=== PATIENT | male | born 1965 | race Caucasian/White ===

== ENCOUNTER 2021-03-30 10:53 | Day surgery (SDC) | payer MEDICAID ==
[~2021-03-30] VITALS: Ht 190.5 cm; Wt 97.7 kg
[2021-03-30] VITALS (11 sets, daily range): BP systolic 113–154; BP diastolic 68–91
[~2021-03-30 10:53] MED LIST: LORA1TAB PO
[2021-03-30] MEDS ORDERED: normal saline 1,000 ML IV SCH (11:40)
[2021-03-30] MEDS ORDERED: LORazepam 0.5 MG tablet PO PRN (11:40)
[2021-03-30] MEDS ORDERED: nitroGLYCERIN 0.4mg SUBLingual tab SL PRN ×2 (11:40→13:50)
[2021-03-30] MEDS ORDERED: diphenhydrAMINE 25mg capsule PO PRN (11:40)
[2021-03-30] MEDS ORDERED: NITR0.4T48 (11:43)
[2021-03-30] MEDS ORDERED: ATOR20TA66 PO (11:43)
[2021-03-30] MEDS ORDERED: LOSA25TA41 PO (11:43)
[2021-03-30] MEDS ORDERED: LEVO25TA7 PO (11:43)
[2021-03-30] MEDS ORDERED: PRAM0.129 PO (11:43)
[2021-03-30] MEDS ORDERED: MIRT-87 PO (11:43)
[2021-03-30] MEDS ORDERED: BUPR100T16 PO (11:45)
[2021-03-30] MEDS ORDERED: MELA3TAB70 PO (11:45)
[2021-03-30] MEDS ORDERED: VITAMIN D3 (11:46)
[2021-03-30] MEDS ORDERED: fentaNYL/PF 50MCG/1 ML 2ML syringe ONE (12:15)
[2021-03-30] MEDS ORDERED: midazolam 1 mg/ML 2ml injection ONE (12:15)
[2021-03-30] MEDS ORDERED: iohexol 350MG/ML 100ml bottle IV ONE (12:15)
[2021-03-30] MEDS ORDERED: iohexol 350 MG/ML 50ML vial IV ONE (12:15)
[2021-03-30] MEDS ORDERED: LIDOcaine 1% (10mg/ml)w/preservative injection 20ml MDV ONE (12:15)
[2021-03-30] MEDS ORDERED: acetaminophen 325mg tablet PO PRN (13:50)
[2021-03-30] MEDS ORDERED: OXAZEpam 15mg capsule PO PRN (13:50)
[2021-03-30] MEDS ORDERED: ondansetron/PF 4mg/2ml inj IV PRN (13:50)
[2021-03-30] MEDS ORDERED: normal saline 1000ml 1,000 ML IV SCH (13:50)
[2021-03-30] MEDS ORDERED: HYDROcodone/acetaminophen 5mg/325mg tablet PO PRN (13:50)
[2021-03-30] MEDS ORDERED: proCHLORperazine 10 MG/2 ml inj IV PRN (13:50)
[2021-03-30] MEDS ORDERED: HYDROcodone/acetaminophen 10/325mg tab PO PRN (13:50)
== END 2021-03-30 19:25 | disposition home or self-care (01) ==
LOC: SSTAY O 10:53
PROVIDERS: ATTEND Internal Medicine Cardiovascular Disease
DX: R94.39 Abnormal result of other cardiovascular function study (principal); I25.10 Atherosclerotic heart disease of native coronary artery without angina pectoris; I34.1 Nonrheumatic mitral (valve) prolapse; I10 Essential (primary) hypertension; E78.5 Hyperlipidemia, unspecified; E03.9 Hypothyroidism, unspecified; E11.9 Type 2 diabetes mellitus without complications; Z79.899 Other long term (current) drug therapy; Z88.8 Allergy status to other drugs, medicaments and biological substances
CPT/HCPCS: 93005; 93458; 99152; C1760; C1769; J1644; J2001; J2250; J3010; J7030; Q9967; 99153; A4620; A6258